=== PATIENT | female | born 1970 | race Hispanic/Latino ===

== ENCOUNTER 2018-06-20 12:58 | Observation (INO) | payer OTHER ==
[~2018-06-20] VITALS: Ht 157.5 cm; Wt 61.2 kg
[~2018-06-20 12:58] MED LIST: ACET1TAB12 PO; DOCU-116 PO; MO8B PO
[2018-06-20] MEDS ORDERED: SODIUM CHLORIDE 0.9% 1000ML 1,000 ML IV ONE ×2 (13:23→16:36)
[2018-06-20] MEDS ORDERED: ONDANSETRON HCL 4 MG/2 ML VIAL ONE (13:23)
[2018-06-20 13:37] LABS: CREATININE 0.6 mg/dL (0.5-1.5); POTASSIUM 3.9 mmol/L (3.5-5.1)
[2018-06-20 13:41] LABS: ALBUMIN 3.7 g/dL (3.5-5.0); BILIRUBIN,TOTAL 0.1 mg/dL (0.2-1.0); TOTAL PROTEIN, SERUM 7.6 g/dL (6.0-8.3)
[2018-06-20 14:01] LABS: INR 0.95 (0.85-1.15); PARTIAL THROMBOPLASTIN TIME 26.9 SEC (26.3-35.5)
[2018-06-20 14:11] LABS: MEAN CORPUSCULAR HEMOGLOBIN 18.6 pg (27.0-33.0); MEAN CORPUSCULAR HGB CONC 30.5 g/dL (32.0-36.0); MEAN CORPUSCULAR VOLUME 60.9 fL (79-99); NUCLEATED RED BLOOD CELLS 0.1 % (0.0-0.19); PLATELET COUNT (AUTO) 284 K/uL (130-400); RED BLOOD CELL COUNT(AUTO) 3.93 MIL/uL (4.00-5.50); RED CELL DISTRIBUTION WIDTH 20.1 % (11.0-15.5); WHITE BLOOD COUNT (AUTO) 5.9 K/uL (4.8-10.8)
[2018-06-20 14:44] LABS: EOSINOPHILS % (MANUAL) 2 % (1-6); LYMPHOCYTES % (MANUAL) 18 % (22-44); MONOCYTES % (MANUAL) 9 % (2-9); SEGMENTED NEUTROPHILS % 71 % (40-70)
[2018-06-20 14:53] LABS: PLATELET MORPHOLOGY COMMENT GIANT PLTS PRESENT
[2018-06-20] MEDS ORDERED: ACETAMINOPHEN EXTRA STRENGTH 500 MG TABLET PO PRN (15:45)
[2018-06-20] MEDS: DIPHENHYDRAMINE HCL 25 MG CAPSULE PO SCH (15:45)
[2018-06-20] MEDS ORDERED: DIPHENHYDRAMINE HCL 25 MG CAPSULE ONE (16:43)
[2018-06-20 17:09] VITALS: BP 144/81
[2018-06-20] MEDS ORDERED: FERR1TAB22 PO (17:33)
[2018-06-20 20:52] VITALS: BP 147/94
[2018-06-20] MEDS ORDERED: WATER FOR INJECTION,STERILE 5 ML VIAL ONE (21:10)
[2018-06-20] MEDS: ESTROGENS,CONJUGATED 25 MG/VIAL IV SCH (21:13)
[2018-06-20 23:50] VITALS: BP 136/87
[2018-06-21] VITALS (16 sets, daily range): BP systolic 109–156; BP diastolic 64–101
[2018-06-21] MEDS ORDERED: WATER FOR INJECTION,STERILE 5 ML VIAL ONE (03:08)
[2018-06-21 03:26] LABS: HEMATOCRIT 31.3 % (36-48)
[2018-06-21] MEDS: SODIUM CHLORIDE 0.9% 1000ML 1,000 ML IV SCH ×2 (03:39→15:45)
[2018-06-21] MEDS: ESTROGENS,CONJUGATED 25 MG/VIAL IV SCH ×3 (03:40→15:00)
[2018-06-21] MEDS ORDERED: LIDOCAINE PF 2% 5ML ABBOJECT ONE (11:12)
[2018-06-21] MEDS ORDERED: FENTANYL CITRATE PF 50 MCG/1 ML 2ML VIAL ONE (11:13)
[2018-06-21] MEDS ORDERED: PROPOFOL 10 MG/ML 20ML VIAL IV ONE (11:13)
[2018-06-21] MEDS ORDERED: CEFAZOLIN SODIUM 1 GM VIAL IVP ONE (11:29)
[2018-06-21] MEDS ORDERED: ONDANSETRON HCL 4 MG/2 ML VIAL ONE (11:42)
[2018-06-21] MEDS ORDERED: SUCCINYLCHOLINE CHLORIDE 20 MG/ML 10 ML VIAL ONE (11:42)
[2018-06-21] MEDS ORDERED: MEPERIDINE-PF 25 MG/ML SYG ONE (11:57)
[2018-06-21] MEDS: DIPHENHYDRAMINE HCL 25 MG CAPSULE PO SCH (15:45)
== END 2018-06-21 18:35 | disposition home or self-care (01) ==
LOC: EDH 12:58 → OBSVTOIN 15:00 → INTOOBSV 15:00 → EDHIP 15:00 → WSH 17:05
PROVIDERS: ADMIT Obstetrics & Gynecology; ATTEND Obstetrics & Gynecology
DX: N92.1 Excessive and frequent menstruation with irregular cycle (principal); D64.9 Anemia, unspecified; R11.2 Nausea with vomiting, unspecified
CPT/HCPCS: 36415; 36430; 76830; 76856; 80053; 84703; 85014; 85018; 85025; 85610; 85730; 86850; 86900; 86901; 86922; 88305; 96361; 96365; 96366; A4351; G0378; J0330; J0690; J1410; J2001; J2175; J2405; J2704; J3010; J7030; P9016; Q0163